=== PATIENT | female | born 1990 ===

== ENCOUNTER 2018-03-07 08:04 | Outpatient (CLI) | payer MEDICAID ==
--- NOTE | 2018-03-07 10:06 | ULT ---
LIMITED LEFT BREAST ULTRASOUND: HISTORY: A 27-year-old female with a palpable abnormality at the 12 o'clock position of the left breast. FINDINGS: Sonographic evaluation in the region of palpable concern demonstrates a well-circumscribed oval solid hypoechoic nonshadowing mass measuring 2.8 x 2.9 x 1.2 cm. 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 IMPRESSION: BIRADS category 3 - probably benign findings. A followup ultrasound is recommended in 6 months if the diagnosis is not confirmed with an ultrasound -guided biopsy. POS: OFF
== END 2018-03-07 08:05 | disposition home or self-care (01) ==
LOC: BICULT 08:04
PROVIDERS: ATTEND Nurse Practitioner
DX: N64.9 Disorder of breast, unspecified (principal)